=== PATIENT | female | born 1970 | race Caucasian/White ===

== ENCOUNTER → 2018-03-07 | Outpatient (CLI) | payer OTHER ==
[~2018-03-07] VITALS: Ht 170.2 cm; Wt 132.9 kg
[~2018-03-07] MED LIST: FIORICET 50-301 EACH PO; FLEXERIL10 MG PO; IMITREX50 MG PO; LEXAPRO10 MG PO; VERAPAMIL ER120 M1 PO; ZOLOFT100 M1 PO
== END | disposition home or self-care (01) ==
LOC: AMB 12:24
DX: D50.9 Iron deficiency anemia, unspecified (principal); D12.4 Benign neoplasm of descending colon; D12.5 Benign neoplasm of sigmoid colon; R12 Heartburn; Z98.84 Bariatric surgery status; E66.9 Obesity, unspecified; Z68.41 Body mass index [BMI] 40.0-44.9, adult; I10 Essential (primary) hypertension; R73.03 Prediabetes; L30.9 Dermatitis, unspecified; Z80.3 Family history of malignant neoplasm of breast; Z87.891 Personal history of nicotine dependence; Z88.0 Allergy status to penicillin; Z91.040 Latex allergy status
CPT/HCPCS: 88305; J2250